=== PATIENT | male | born 1960 | race Caucasian/White ===

== ENCOUNTER 2017-03-23 21:58 | Emergency (ER) | payer BC, OTHER ==
--- NOTE | 2017-03-23 22:41 | ERNOTE ---
Medical Problem HPI - Narrative Date of Service: 03/23/17 - General Chief Complaint: General Assessment Time Seen by Provider: 03/23/17 22:37 Source: patient - Immun/Allergies/Home Medications Immunizations: IMMUNIZATION HX Immunizations Up to Date Yes History of Influenza Vaccine No Hx Pneumococcal Vaccination No Allergies/Adverse Reactions: Allergies No Known Allergies Allergy (Unverified 03/23/17 22:01) Home Medications: HOME MEDICATIONS Calcium Carbonate [Calcium] 750 mg PO DAILY 03/23/17 [Last Taken Unknown] Carisoprodol/Aspirin [Carisoprodl-Aspirin 200-325 mg] 1 each PO DAILY 03/23/17 [ Last Taken Unknown] Levothyroxine Sodium [Synthroid] 200 mcg PO SUMOTU 03/23/17 [Last Taken Unknown] Levothyroxine Sodium [Synthroid] 225 mcg PO WETHFRSA 03/23/17 [Last Taken Unknown] Meloxicam [Mobic] 7.5 mg PO DAILY 03/23/17 [Last Taken Unknown] [place]-3 Fatty Acids [Fish Oil] 300 mg PO DAILY 03/23/17 [Last Taken Unknown] - History of Present History Narrative: LEFT RIB PAIN AFTER COUGHING STARTING TODAY. NO OTHER TRAUMA KNOWN. 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 Review of Systems - Review of Systems Constitutional: Present: See HPI EYE: Present: no symptoms reported ENT: Present: no symptoms reported Respiratory: Present: See HPI, cough Cardiology: Present: no symptoms reported Gastrointestinal/Abdominal: Present: no symptoms reported Genitourinary: Present: no symptoms reported Musculoskeletal: Present: See HPI - LEFT RIB PAIN AFTER COUGHING Skin: Present: no symptoms reported Neurological: Present: no symptoms reported Endocrine: Present: no symptoms reported Hematologic/Lymphatic: Present: no symptoms reported Psych: Present: no symptoms reported All Other Systems: All systems neg except as marked - Patient's Past Medical History Patient History - Medical: GERD, Hypothyroidism, Kidney stone Patient History - Cardiac/Respiratory: Pneumonia, CPAP/BiPAP Home Use, Sleep Apnea Patient History - Cancer: No Hx of Cancer Patient History - Surgical Procedures: Appendectomy, Total Knee Replacement, T & A, Other Patient History - Other: None - Social History Living Situations: home Abuse History: No History of abuse Psych History: No pertinent hx Smoking Status: Never smoker Alcohol Use: none Drug Use: none - Immunizations Immunizations Up to Date: Yes Hx Pneumococcal Vaccination: No History of Influenza Vaccine: No Physical Exam - Physical Exam General Appearance: Present: wd/wn, alert, moderate distress - VERY OBESE MAN , BMI = 43+, 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 Respiratory: Present: no respiratory distress, normal breath sounds, no accessory muscle use, lungs clear, chest tenderness - C/O TENDERNESS TO LEFT MID ANT -LATERAL CHEST WALL IN AREA OF ANT AXILLARY LINE. THERE IS NO CREPITUS OR SWELLING OR BRUISSE OR DISCOLORATION . HE C/O SOME PAIN TO SAME AREA WITH A- P COMPRESSION OF THE CHEST FROM STERNUM TO BACK. Back Exam: Present: normal inspection Neurological Exam: Present: alert, oriented Skin Exam: Present: normal color, warm/dry. Absent: skin rash ED Progress - Vital Signs Patient's Vital Signs:: I have reviewed the patient's vital signs. Vital Signs: Vital Signs 03/23/17 22:00 Temperature 36.3 C L Pulse Rate 81 Respiratory 20 Rate Blood Pressure 161/97 O2 Sat by Pulse 95 Oximetry - X-Ray X-Ray #1 X-Ray: ribs - LEFT RIBS WITH NO SIGN OF FRACTURE. Interpretation: Interp. 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 Departure - Departure Clinical Impression: Rib pain on left side Disposition: Home Follow Up Needed Condition: Good Instructions: Chest Wall Pain, Rib Contusion, Musculoskeletal Pain Additional Instructions: LOCAL CARE WITH ICE X 20 MINS FOLLOWED BY HEAT FOR 20 MIN Q 4 HOURS. GENTLE ACTIVITY. IBUPROFEN 600 MG EVERY 8 HRS, TAKE WITH FOOD. SAVE YOUR OXYCODONE FOR EXTRA PAIN RELIEF IF NEEDED. RECHECK WITH YOUR FAMILY DOCTOR IF WORSE. BIO- FREEZE TOPPICALLY MAY HELP WELL. Referrals: Darrius Lea MD [Primary Care Provider] -
--- OUTSIDE RECORDS SUMMARY | 2017-03-23 22:59 | XMS REPORT | Continuity of Care Document ---
:1960 Author Organization [facility] ([facility]) Address [address] [place] [address] Phone [phone] Care Team Providers Name Role Phone Darrius Purcell Primary Care Provider [phone] Source Comments This disclosure is being made pursuant to the Care Everywhere program, applicable federal and state laws, and may not contain all informaitonavailable regarding this patient.[facility] ([facility]) Active Allergies and Adverse Reactions Allergen Noted Date Severity Reactions Comments Bee Stings Angioedema Current Medications Prescription Sig. Disp. Refills Start Date End Date Status levothyroxine 200 mcg Take 200 mcg by mouth Active tablet every morning before breakfast. ibuprofen 800 mg Take 800 mg by mouth Active tablet daily. carisoprodol 350 mg Take 700 mg by mouth Active tablet at bedtime. SAW PALMETTO PO Take 900 mg PE by Active mouth daily. [id number] Take 2 Tabs by mouth Active rae serr (OSTEO daily. BI-FLEX) 1,500-400-100 mg-unit-mg Tab Grape Seed Extract Take 1 Cap by mouth Active 100 mg cap daily. docusate (STOOL Take 200 mg by mouth Active SOFTENER) 100 mg at bedtime. capsule diphenhydrAMINE-aceta Take 1.5 Tabs by mouth Active minophen 25-500 mg at bedtime as needed. per tablet OTHER 1 mL daily. Active Testosterone cream levothyroxine 25 mcg l-t4 25 mcg for 3 45 Tab 3 02/02/2013 Active tablet days/week (Thu-Thu). Indications: HYPOTHYROIDISM VENTOLIN HFA 90 as needed. 0 04/09/2016 Active mcg/Actuation inhaler ADVAIR 500-50 inhaler 1 Puff every 12 hours. 11 04/07/2016 Active furosemide 20 mg Take 60 mg by mouth 0 04/09/2016 Active tablet daily. omeprazole 40 mg 11 04/04/2016 Active enteric coated capsule multivitamin tablet Take 1 tablet by mouth Active daily. omega-3 fatty acids 1 Take 2 g by mouth 2 Active gram capsule times daily. Active Problems Problem Noted Date Localized edema 04/15/2016 PAF (paroxysmal atrial fibrillation) Overview: Formatting of this note may be different from the original. CARDIOVASCULAR PROCEDURES STRESS TESTS: SEH (7mins and 30secs. HR 155. Neg stress echo.) - 06/25/2006 MPI (Normal. EF 62%.) - 01/24/2008 ECHO Echo: LVEF 60%. Normal wall motion. No valvular heart disease. RVSP 35mmg. Morbid obesity with BMI of 45.0-49.9, adult Immunizations Name Dates Previously Given Next Due Influenza, unspecified 09/18/2012 Social History Tobacco Use Types Packs/Day Years Used Date Never Smoker Last Filed Vital Signs Vital Sign Reading Time Taken Blood Pressure 120/78 04/15/2016 11:32 AM CDT Pulse 66 04/15/2016 11:32 AM CDT Temperature 36.7 C (98.1 F) 02/23/2013 4:21 PM CDT Respiratory Rate 16 02/23/2013 4:21 PM CDT Height 1.803 m (5' 11") 04/15/2016 11:32 AM CDT Weight 155 kg (341 lb 11.4 oz) 04/15/2016 11:32 AM CDT Body Mass Index 47.68 04/15/2016 11:32 AM CDT Oxygen Saturation - - Plan of Care Health Maintenance Due Date Last Done Comments HCV Screening 1960 Hepatitis B Vaccine (1 of 3 - Primary Series) 1960 Tdap Vaccine 1970 Lipid Disorder Screening 1977 MMR Vaccine 1977 Td Vaccine 1977 Colonoscopy 03/23/2009 Prostate Cancer Screening 01/31/2014 01/31/2013 Influenza Vaccine: Seasonal (#1) 05/19/2016 09/18/2012 Results from Last 3 Months Not on file
[2017-03-24 00:11] VITALS: BP 152/87
== END 2017-03-24 00:09 | disposition home or self-care (01) ==
LOC: ER 21:58
DX: R07.81 Pleurodynia (principal); Z87.442 Personal history of urinary calculi; E03.9 Hypothyroidism, unspecified; K21.9 Gastro-esophageal reflux disease without esophagitis

== ENCOUNTER 2020-09-03 22:52 | Inpatient (IN) ==
[2020-09-03] MEDS ORDERED: NORMAL SALINE 1,000 ML IV ONE (23:26)
--- NOTE | 2020-09-03 23:27 | ERNOTE ---
Dyspnea - General Presenting Symptoms: shortness of breath Time Seen by Provider: 09/03/20 23:20 Source: patient Exam Limitations: no limitations - Immun/Allergies/Home Medications Immunizations: IMMUNIZATION HX Immunizations Up to Date Yes History of Influenza Vaccine No Hx Pneumococcal Vaccination No Allergies/Adverse Reactions: Allergies cefuroxime [From Ceftin] Allergy (Mild, Verified 09/03/20 23:12) lost sense of smell and taste levofloxacin Allergy (Mild, Verified 09/03/20 23:12) loss of taste Home Medications: HOME MEDICATIONS Calcium Carbonate [Calcium] 750 mg PO DAILY 03/23/17 [Last Taken Unknown] [place]-3 Fatty Acids [Fish Oil] 300 mg PO DAILY 03/23/17 [Last Taken Unknown] docusate sodium 100 mg capsule 100 mg PO DAILY 09/27/18 [Last Taken Unknown] grape seed extract 50 mg capsule 100 mg PO DAILY cap 09/27/18 [Last Taken Unknown] multivitamin 1 tab PO DAILY 09/27/18 [Last Taken Unknown] oxymetazoline 0.05 % nasal spray 2 spray PELON Q12H PRN 09/27/18 [Last Taken Unknown] zolpidem 10 mg tablet 10 mg PO HS PRN 09/27/18 [Last Taken Unknown] Cyclobenzaprine HCl [Flexeril] 10 mg PO TID PRN #30 tab 12/26/18 [Last Taken Unknown] Nebulizer tubing 0 .ROUTE .MEDSUPPLY #2 ea 03/09/19 [Last Taken Unknown] omeprazole 10 mg capsule,delayed release 10 mg PO DAILY 03/09/19 [Last Taken Unknown] potassium chloride 20 mEq tablet,extended release(part/cryst) 20 meq PO .twice a week tab 03/09/19 [Last Taken Unknown] epinephrine 0.3 mg/0.3 mL injection, auto-injector 0.3 mg IM Q10-15M PRN #1 ea 10/06/19 [Last Taken Unknown] nebulizers See Dose Instructions .ROUTE .MEDSUPPLY #1 ea 10/18/19 [Last Taken Unknown] albuterol sulfate 2.5 mg IH Q4H PRN #180 ml 12/26/19 [Last Taken Unknown] carisoprodol 350 mg tablet 700 mg PO HS #60 tab 03/26/20 [Last Taken Unknown] levothyroxine 200 mcg tablet 200 mcg PO DAILY #30 tab 03/26/20 [Last Taken Unknown] levothyroxine 25 mcg capsule 25 mcg PO DAILY #90 cap 03/28/20 [Last Taken Unknown] montelukast 10 mg tablet 10 mg PO DAILY #30 tab 05/08/20 [Last Taken Unknown] furosemide 20 mg tablet 30 mg PO .twice a week #8 tab 05/11/20 [Last Taken Unknown] budesonide 0.5 mg/2 mL suspension for nebulization 2 ml IH BID #120 ml 06/04/20 [Last Taken Unknown] Durable Medical Equipment See Rx Instructions .ROUTE .MEDSUPPLY #1 ea 06/11/20 [Last Taken Unknown] albuterol sulfate 90 mcg/actuation aerosol inhaler See Rx Instructions IH .Q4- 6HR PRN #8 g 06/11/20 [Last Taken Unknown] bipap 0 .ROUTE .MEDSUPPLY #1 ea 06/11/20 [Last Taken Unknown] naproxen 500 mg tablet 500 mg PO BID #60 tab 07/06/20 [Last Taken Unknown] oxycodone-acetaminophen 10 mg-325 mg tablet See Rx Instructions PO DAILY #50 tab 08/16/20 [Last Taken Unknown] polymyxin B sulfate 10,000 unit-trimethoprim 1 mg/mL eye drops 1 drp OP QID 10 Days #10 ml 08/31/20 [Last Taken Unknown] prednisone 10 mg tablet 30 mg PO BID #60 tab 08/31/20 [Last Taken Unknown] benzonatate 100 mg capsule 200 mg PO TID PRN #100 cap 09/03/20 [Last Taken Unknown] - History of Present Illness Narrative: Patient states that he got pinkeye last week which prompted him to get a Covid test on Thursday he got results back on Thursday that were positive. He has been somewhat short of breath which has increased yesterday and today. He had saturations in the upper 80s earlier today and presented to the ED. He had what he calls spikes of chest pain now and then the chest pain only lasted a few seconds at a time. Severity: moderate Treatment [employer]: albuterol Initiating event: Reports: other - Covid Frequency of episodes: Reports: occassional episodes - Asthma Associated Symptoms-Dyspnea: Reports: fever/chills, sweating, chest pain/discomfort Review of Systems - Review of Systems Constitutional: Present: See HPI, recent illness, fever EYE: Present: see HPI, eye discharge ENT: Present: nose congestion, nasal drainage Respiratory: Present: See HPI, shortness of breath, cough - Some mild occasionally blood-tinged sputum Cardiology: Present: See HPI, chest pain. Absent: edema Gastrointestinal/Abdominal: Present: eating less, drinking less. Absent: nausea, vomiting, abdominal pain Genitourinary: Absent: frequency, dysuria Musculoskeletal: Absent: back pain, muscle pain Skin: Absent: rash Neurological: Present: headache. 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) Bilateral shoulder pain (Chronic) Bee sting reaction (Chronic) Atrial fibrillation (Chronic) Asthma (Chronic) Allergic rhinitis (Chronic) Asthma exacerbation attacks (Chronic) Deviated nasal septum YU (obstructive sleep apnea) PVC (premature ventricular contraction) Surgical History: Surgical History (Last Reviewed 09/03/20 @ 23:23 by Mu Chen DO) H/O colonoscopy 2009 tinguely normal screen H/O thyroidectomy History of appendectomy Hx of tonsillectomy Family History: Family History (Last Reviewed 09/03/20 @ 23:23 by Mu Chen DO) Father Cancer colon and skin Parkinsons Kidney disease Mother Cancer pancreas Pacemaker Sister Thyroid disease Social History: (Last Reviewed 09/03/20 @ 23:23 by Mu Chen DO) Social History: Highest level of school completed/degree received: Professional school degre Service: No Tobacco: Smoking Status: Never smoker Alcohol: alcohol intake: former Substance Use: substance use type: does not use Dietary Habits: well-balanced diet: about half the time Exercise: Physical activity type: none Physical Exam - Physical Exam General Appearance: Present: wd/wn, alert, no apparent distress Head Exam: Present: normal inspection, no evidence of injury Eye Exam: Normal inspection: bilateral Ears, Nose, Throat: Present: normal ENT inspection Neck: Present: normal inspection, nontender Respiratory: Present: no respiratory distress, chest nontender, wheezing - Bilateral Cardiovascular/Chest: Present: regular rate, rhythm, no murmur Gastrointestinal/Abdominal: Present: normal bowel sounds, nontender, nondistended, soft Extremity Exam: Present: normal inspection, normal range of motion, no edema Neurological Exam: Present: alert, oriented, normal mood/affect, no motor/sensory deficits Skin Exam: Present: normal color, warm/dry Lymphatic Exam: Present: no adenopathy Progress - Results and Orders Patient's Lab Results:: I have reviewed the patient's lab results. - Vital Signs Patient's Vital Signs:: I have reviewed the patient's vital signs. Vital Signs: Vital Signs 09/03/20 23:12 Temperature 38.2 C H Pulse Rate 88 Respiratory Rate 24 H Blood Pressure 175/75 H O2 Sat by Pulse Oximetry 83 L - EKG EKG #1 EKG: NSR, no ST T wave changes EKG read: Interp. by me - X-Ray X-Ray #1 X-Ray: chest Interpretation: Interp. by me X-ray Comments: Patchy infiltrates throughout the right lung and in the left lower lung. Cardiomegaly unchanged from previous. No pneumothorax. - Progress/Reassessment Progress Note-Subjective: 09/04/20 01:12 Patient continues to require 3 L of oxygen per nasal cannula in order to keep a oxygen saturation of 92% I spoke to Dr. Verduzco he agrees to admit patient for Covid pneumonia. I had di scussed with him about the elevated D-dimer and he states with Covid positive patients they were not doing a CTA to rule out PE but covering them with Lovenox while in the hospital. Departure Clinical Impression: Pneumonia due to COVID-19 virus - Departure Disposition: Still a patient Condition: Good
[2020-09-03 23:30] LABS: Hematocrit 40.9 % (42.0-52.0); Hemoglobin 13.4 gm/dL (13.5-18.0); Mean Cell Volume 95.8 fl (78-100); Mean Corpuscular Hemoglobin 31.4 pg (27-31); Mean Corpuscular Hgb Conc 32.8 g/dl (32-36); Mean Platelet Volume 10.3 fl (8-11.3); Neutrophil # 10.8 K/mm3 (1.3-6.0); Neutrophil % 91.3 % (42-75.0); Platelet Count 243 K/mm3 (150-450); Red Blood Count 4.27 M/mm3 (4.7-6.0); Red Cell Distribution Width 13.5 % (11.5-14.0); White Blood Count 11.8 K/mm3 (4.0-10.5)
[2020-09-03] MEDS ORDERED: ALBUTEROL SULFATE 2.5 MG/0.5 ML VIAL.NEB IH ONE (23:46)
[2020-09-03 23:55] LABS: Albumin * 2.9 gm/dl (3.4-5.0); Anion Gap 13.3 mmol/L (6.8-13.8); BUN/Creatinine Ratio 16.5 (9.0-21.6); Bilirubin, Total 0.7 mg/dL (0.0-1.1); Ca. Corrected For Albumin 9.2 mg/dL (8.4-10.2); Calcium * 8.6 mg/dL (7.9-10.9); Carbon Dioxide 25.3 mmol/L (24-32.6); Potassium 3.6 mmol/L (3.4-4.6); Total Protein 6.7 gm/dL (6.2-8.2)
[2020-09-04] MEDS ORDERED: ENOXAPARIN SODIUM 100 MG/ML SYRG SC SCH (01:15)
[2020-09-04] MEDS ORDERED: ENOXAPARIN SODIUM 60 MG/0.6 ML SYRG SC ONE (02:50)
[2020-09-04] MEDS ORDERED: DEXAMETHASONE SODIUM PHOSP/PF 10 MG/ML VIAL IV ONE (07:47)
[2020-09-04] MEDS ORDERED: HYDROcodone/ACETAMINOPHEN 1 EACH TABLET PO PRN (07:56)
[2020-09-04] MEDS ORDERED: REMDESIVIR IV SCH (08:00)
[2020-09-04] MEDS ORDERED: NORMAL SALINE IV SCH (08:00)
[2020-09-04] MEDS ORDERED: REMDESIVIR (EUA) 200 MG in NORMAL SALINE 210 ML IV ONE (08:11)
[2020-09-04] MEDS ORDERED: ENOXAPARIN SODIUM 40 MG/0.4 ML SYRG SC SCH (08:30)
[2020-09-04] MEDS ORDERED: FUROSEMIDE 20 MG TABLET PO ONE (08:37)
[2020-09-04] MEDS ORDERED: EPINEPHrine 1 MG/ML VIAL IM PRN (08:37)
[2020-09-04] MEDS ORDERED: DOCUSATE SODIUM 100 MG CAPSULE PO SCH (09:00)
[2020-09-04] MEDS ORDERED: FUROSEMIDE 20 MG TABLET PO SCH ×2 (09:00→09:15)
[2020-09-04] MEDS ORDERED: POTASSIUM CHLORIDE 20 MEQ TABLET.SA PO SCH ×3 (09:00→09:15)
[2020-09-04] MEDS ORDERED: MULTIVITAMINS 1 CAP CAPSULE PO SCH (09:00)
[2020-09-04] MEDS ORDERED: CALCIUM CARBONATE 500 MG TAB.CHEW PO SCH (09:00)
--- NOTE | 2020-09-04 09:02 | PN ---
Subjective - Date and Time Seen Date: 09/04/20 Time: 07:30 Subjective Narrative: Patient states that he got pinkeye last week which prompted him to get a Covid test on Thursday he got results back on Thursday that were positive. He has been somewhat short of breath which increased yesterday and today. He has chronic asthma. He had saturations in the upper 80s earlier today and presented to the ED. He had what he calls spikes of chest pain now and then the chest pain only lasted a few seconds at a time. He has had a relatively recent evaluation for CAD which turned out ok. He had a fever at home to 101. He has been coughing and wheezing. aches all over. fatigued. no headache, chills or sweats. cough is productive occasionally of white phlegm. CXR shows bilateral infiltrates. Lab work fairly unremarkable. ER doctor ordered oxygen and one dose of dexamethason e.O2 sat in the ER 83. With n.c. O2, low to mid nineties. Respiratory rate 20- 24. Uses bipap at home for YU. Objective - Review of Systems Generalized/Overall Review: Reports: Weakness, Fever, Malaise. Denies: Chills, Diaphoresis EENTM: Reports: Other - resolving pink eye. Denies: Eye Pain, Blurred Vision Respiratory: Reports: Cough, Shortness of Breath, Wheezing, Other - chest tightness/heaviness Cardiac: Reports: Chest Pain - sharp brief intermittent Abdominal: Reports: No Symptoms Reported Genitourinary Symptoms: Reports: No Symptoms Reported Musculoskeletal Complaints: Reports: Joint Pain, Other - hurts all over Neurological: Reports: No Symptoms Reported Skin: Reports: No Symptoms Reported Endocrine: Reports: No Symptoms Reported Misc: All systems neg except as marked - Vitals Vitals: Last Vital Signs Temp 37.4 C 09/04/20 07:12 Pulse 83 09/04/20 07:12 Resp 18 09/04/20 07:12 BP 155/78 H 09/04/20 07:12 Pulse Ox 95 09/04/20 07:12 - Abnormal Lab Findings Abnormal Lab Findings: Abnormal Lab Results 09/03/20 09/03/20 09/03/20 Range/Units 23:15 23:15 23:15 WBC 11.8 H (4.0-10.5) K/mm3 RBC 4.27 L (4.7-6.0) M/mm3 Hgb 13.4 L (13.5-18.0) gm/dL Hct 40.9 L (42.0-52.0) % MCH 31.4 H (27-31) pg Immature Gran % (Auto) 0.60 H (0.001-0.429) % Immature Gran # (Auto) 0.07 H (0.000-0.0310) K/mm3 Neutrophils % 91.3 H (42-75.0) % Lymphocytes % 3.6 L (20-51) % Neutrophils # 10.8 H (1.3-6.0) K/mm3 Lymphocytes # 0.42 L (1.5-3.5) k/mm3 D-Dimer 1.85 H (0.19-0.49) ug/mL B-Natriuretic Peptide 788 H (5-175) pg/mL Albumin 2.9 L (3.4-5.0) gm/dl - Exam Constitutional: Present: Alert, Oriented x3, Cooperative, Well developed, No distress, Other - looks like he doesn't feel well, Obese ENT Exam: Present: normal ENT inspection, hard of hearing Neck: Present: normal inspection. Absent: limited range of motion, lymphadenopathy (R), lymphadenopathy (L), thyromegaly Breasts: Present: Exam deferred Respiratory: Present: no respiratory distress, rhonchi, wheezing Cardiovascular/Chest: Present: regular rate, rhythm, no edema - history of leg and foot edema for which he takes lasix, no gallop, no JVD, no murmur Abdomen: Present: Normal bowel sounds, soft, nontender, nondistended, no hepatospenomegaly, no masses, obese /Rectal: Present: Exam deferred Skin Exam: Present: warm/dry, no cyanosis. Absent: jaundice, skin rash Lymphatic: Present: no adenopathy Neurologic: Present: oriented x 3. Absent: abnormal gait Appearance: Present: appropriate appearance, appropriate insight, neat Eye contact: Present: cooperative, good eye contact, normal speech Thoughts: Present: other - appear somewhat anxious Assessment/Plan - Problems/Diagnosis (1) Respiratory failure with hypoxia Problem: Acute Qualifiers: Chronicity: acute Qualified Code(s): J96.01 - Acute respiratory failure with hypoxia Narrative: plan n.c. O2. adjust treatment as necessary. monitor. (2) Pneumonia due to COVID-19 virus Problem: Acute Narrative: Antiviral. Dexamethasone. Rocephin, since this could also be Covid 19 with pneumonia, bacterial, as a complication. monitor. (3) Acute asthma Problem: Acute Narrative: desamethasone. albuterol. monitor. (4) BMI 45.0-49.9, adult Problem: Chronic (5) Chronic pain of both shoulders Problem: Chronic (6) Chronic venous insufficiency Problem: Chronic (7) Hypothyroidism Problem: Chronic Qualifiers: (8) Hypovitaminosis D Problem: Chronic (9) YU treated with BiPAP Problem: Chronic
[2020-09-04] MEDS: BUDESONIDE IH SCH ×2 (09:10→22:42)
[2020-09-04] MEDS: NEOMYCIN/GRAMICIDIN/POLYMYXN B 100 DROP BTL EACHEYE SCH ×4 (09:14→22:42)
--- NOTE | 2020-09-04 10:42 | HP ---
Chief Complaint - Chief Complaint Date of Service: 09/04/20 Time of Service: 07:30 Chief Complaint: Short of Breath History of Present Illness: Harjeet got pinkeye last week which prompted him to get a Covid test on Thursday he got results back on Thursday that were positive. He has been somewhat short of breath which increased yesterday and today. He has been wheezing. He has chronic asthma. That flared up 6 days ago and he started prednisone 30 mg twice daily. In the ER he had saturations in the upper 80s earlier today when her presented to the ED. He had spikes of chest pain now then which lasted a few seconds at a time. He has had a relatively recent evaluation for CAD which turned out ok. He had a fever at home to 101. He has been coughing and wheezing. aches all over. fatigued. no headache, chills or sweats. cough is productive occasionally of white phlegm. CXR shows bilateral infiltrates. Lab work fairly unremarkable. ER doctor ordered oxygen and one dose of dexamethasone.O2 sat in the ER 83. With n.c. O2, low to mid nineties. Respiratory rate 20-24. Uses bipap at home for YU. 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) Bilateral shoulder pain (Chronic) Bee sting reaction (Chronic) Atrial fibrillation (Chronic) Asthma (Chronic) Allergic rhinitis (Chronic) Asthma exacerbation attacks (Chronic) Deviated nasal septum YU (obstructive sleep apnea) PVC (premature ventricular contraction) Surgical History: Surgical History (Last Reviewed 09/04/20 @ 10:38 by Darrius Lea MD) H/O colonoscopy 2009 tinguely normal screen H/O thyroidectomy History of appendectomy Hx of tonsillectomy Family History: Family History (Last Reviewed 09/04/20 @ 10:38 by Darrius Lea MD) Father Cancer colon and skin Parkinsons Kidney disease Mother Cancer pancreas Pacemaker Sister Thyroid disease Social History: (Last Reviewed 09/04/20 @ 10:38 by Darrius Lea MD) Social History: 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 Absent: Edema Abdominal: Absent: Nausea, Abdominal Pain, Constipation, Diarrhea Genitourinary: Absent: Burning, Urgency Neurological: Present: No Symptoms Reported Skin: Absent: Lesions, Rash Endocrine: Present: No Symptoms Reported Immunizations: IMMUNIZATION HX Immunizations Up to Date Yes History of Influenza Vaccine No Hx Pneumococcal Vaccination No Allergies/Adverse Reactions: Allergies Allergy/AdvReac Type Severity Reaction Status Date / Time cefuroxime [From Ceftin] Allergy Mild lost sense Verified 09/03/20 23:12 of smell and taste levofloxacin Allergy Mild loss of Verified 09/03/20 23:12 taste Home Medications: HOME MEDICATIONS Calcium Carbonate [Calcium] 750 mg PO DAILY 03/23/17 [Last Taken Unknown] [place]-3 Fatty Acids [Fish Oil] 300 mg PO DAILY 03/23/17 [Last Taken Unknown] docusate sodium 100 mg capsule 100 mg PO DAILY 09/27/18 [Last Taken Unknown] grape seed extract 50 mg capsule 100 mg PO DAILY cap 09/27/18 [Last Taken Unknown] multivitamin 1 tab PO DAILY 09/27/18 [Last Taken Unknown] oxymetazoline 0.05 % nasal spray 2 spray PELON Q12H PRN 09/27/18 [Last Taken Unknown] zolpidem 10 mg tablet 10 mg PO HS PRN 09/27/18 [Last Taken Unknown] Cyclobenzaprine HCl [Flexeril] 10 mg PO TID PRN #30 tab 12/26/18 [Last Taken Unknown] Nebulizer tubing 0 .ROUTE .MEDSUPPLY #2 ea 03/09/19 [Last Taken Unknown] omeprazole 10 mg capsule,delayed release 10 mg PO DAILY 03/09/19 [Last Taken Unknown] potassium chloride 20 mEq tablet,extended release(part/cryst) 20 meq PO .twice a week tab 05/22/19 [Last Taken Unknown] epinephrine 0.3 mg/0.3 mL injection, auto-injector 0.3 mg IM Q10-15M PRN #1 ea 10/06/19 [Last Taken Unknown] nebulizers See Dose Instructions .ROUTE .MEDSUPPLY #1 ea 10/18/19 [Last Taken Unknown] albuterol sulfate 2.5 mg IH Q4H PRN #180 ml 12/26/19 [Last Taken Unknown] carisoprodol 350 mg tablet 700 mg PO HS #60 tab 03/26/20 [Last Taken Unknown] levothyroxine 200 mcg tablet 200 mcg PO DAILY #30 tab 03/26/20 [Last Taken Unknown] levothyroxine 25 mcg capsule 25 mcg PO DAILY #90 cap 03/28/20 [Last Taken Unknown] montelukast 10 mg tablet 10 mg PO DAILY #30 tab 05/08/20 [Last Taken Unknown] furosemide 20 mg tablet 30 mg PO .twice a week #8 tab 05/11/20 [Last Taken Unknown] budesonide 0.5 mg/2 mL suspension for nebulization 2 ml IH BID #120 ml 06/04/20 [Last Taken Unknown] Durable Medical Equipment See Rx Instructions .ROUTE .MEDSUPPLY #1 ea 06/11/20 [Last Taken Unknown] albuterol sulfate 90 mcg/actuation aerosol inhaler See Rx Instructions IH .Q4- 6HR PRN #8 g 06/11/20 [Last Taken Unknown] bipap 0 .ROUTE .MEDSUPPLY #1 ea 06/11/20 [Last Taken Unknown] naproxen 500 mg tablet 500 mg PO BID #60 tab 07/06/20 [Last Taken Unknown] oxycodone-acetaminophen 10 mg-325 mg tablet See Rx Instructions PO DAILY #50 tab 08/16/20 [Last Taken Unknown] polymyxin B sulfate 10,000 unit-trimethoprim 1 mg/mL eye drops 1 drp OP QID 10 Days #10 ml 08/31/20 [Last Taken Unknown] prednisone 10 mg tablet 30 mg PO BID #60 tab 08/31/20 [Last Taken Unknown] benzonatate 100 mg capsule 200 mg PO TID PRN #100 cap 09/03/20 [Last Taken Unknown] Exam - Exam Vital Signs: Vital Signs - Last Taken Temp 37.4 C 09/04/20 07:12 Pulse 83 09/04/20 07:12 Resp 18 09/04/20 07:12 BP 155/78 H 09/04/20 07:12 Pulse Ox 95 09/04/20 07:12 Constitutional: Present: Alert, Oriented x3, Cooperative, Well developed, Morbidly obese ENT Exam: Present: normal ENT inspection. Absent: hearing grossly normal Eye Exam: bilateral eye: normal inspection - redness he had is gone, PERRL, EOMI Neck: Present: normal inspection. Absent: lymphadenopathy (R), lymphadenopathy (L), thyromegaly Back Exam: Present: normal inspection Breasts: Present: Exam deferred Respiratory: Present: no respiratory distress, rhonchi, wheezing Cardiovascular/Chest: Present: regular rate, rhythm, no edema, no gallop, no JVD, no murmur Peripheral Pulses: carotid (R): 1+, carotid (L): 1+ Abdomen: Present: Normal bowel sounds, soft, nontender, nondistended, no hepatospenomegaly, no masses, obese /Rectal: Present: Exam deferred Extremity: Present: normal capillary refill - has intermittent edema. none today. Skin Exam: Present: normal color, warm/dry Lymphatic: Present: no adenopathy Neurologic: Present: motor weakness. Absent: abnormal gait Appearance: Present: appropriate appearance, appropriate insight, neat, no memory impairment Eye contact: Present: cooperative, good eye contact, normal speech Thoughts: Present: normal thought pattern - anxious about his illness Diagnostic Studies: Abnormal Lab Results 09/03/20 09/03/20 09/03/20 Range/Units 23:15 23:15 23:15 WBC 11.8 H (4.0-10.5) K/mm3 RBC 4.27 L (4.7-6.0) M/mm3 Hgb 13.4 L (13.5-18.0) gm/dL Hct 40.9 L (42.0-52.0) % MCH 31.4 H (27-31) pg Immature Gran % (Auto) 0.60 H (0.001-0.429) % Immature Gran # (Auto) 0.07 H (0.000-0.0310) K/mm3 Neutrophils % 91.3 H (42-75.0) % Lymphocytes % 3.6 L (20-51) % Neutrophils # 10.8 H (1.3-6.0) K/mm3 Lymphocytes # 0.42 L (1.5-3.5) k/mm3 D-Dimer 1.85 H (0.19-0.49) ug/mL B-Natriuretic Peptide 788 H (5-175) pg/mL Albumin 2.9 L (3.4-5.0) gm/dl Laboratory Results WBC 11.8 K/mm3 (4.0-10.5) H 09/03/20 23:15 RBC 4.27 M/mm3 (4.7-6.0) L 09/03/20 23:15 Hgb 13.4 gm/dL (13.5-18.0) L 09/03/20 23:15 Hct 40.9 % (42.0-52.0) L 09/03/20 23:15 MCV 95.8 fl (78-100) 09/03/20 23:15 MCH 31.4 pg (27-31) H 09/03/20 23:15 MCHC 32.8 g/dl (32-36) 09/03/20 23:15 RDW 13.5 % (11.5-14.0) 09/03/20 23:15 Plt Count 243 K/mm3 (150-450) 09/03/20 23:15 MPV 10.3 fl (8-11.3) 09/03/20 23:15 Immature Gran % (Auto) 0.60 % (0.001-0.429) H 09/03/20 23:15 Immature Gran # (Auto) 0.07 K/mm3 (0.000-0.0310) H 09/03/20 23:15 Neutrophils % 91.3 % (42-75.0) H 09/03/20 23:15 Lymphocytes % 3.6 % (20-51) L 09/03/20 23:15 Monocytes % 4.1 % (0.0-9) 09/03/20 23:15 Eosinophils % 0.1 % (0.0-3.0) 09/03/20 23:15 Basophils % 0.3 % (0.0-1.0) 09/03/20 23:15 Nucleated RBC % 0.0 k/mm3 (0-1) 09/03/20 23:15 Neutrophils # 10.8 K/mm3 (1.3-6.0) H 09/03/20 23:15 Lymphocytes # 0.42 k/mm3 (1.5-3.5) L 09/03/20 23:15 Monocytes # 0.5 k/mm3 (0.0-1.0) 09/03/20 23:15 Eosinophils # 0.0 k/mm3 (0.0-0.7) 09/03/20 23:15 Absolute Basophils 0.0 k/mm3 (0.0-0.1) 09/03/20 23:15 D-Dimer 1.85 ug/mL (0.19-0.49) H 09/03/20 23:15 Sodium 136 mmol/L (132-142) 09/03/20 23:15 Plasma Sodium 136 mmol/L (130-142) 09/03/20 23:15 Potassium 3.6 mmol/L (3.4-4.6) 09/03/20 23:15 Chloride 101 mmol/L (97-106) 09/03/20 23:15 Carbon Dioxide 25.3 mmol/L (24-32.6) 09/03/20 23:15 Anion Gap 13.3 mmol/L (6.8-13.8) 09/03/20 23:15 BUN 17 mg/dL (6-23) 09/03/20 23:15 Creatinine 1.03 mg/dL (0.4-1.4) 09/03/20 23:15 Est GFR (Non-Af Amer) 78 mL/min (60-130) 09/03/20 23:15 BUN/Creatinine Ratio 16.5 (9.0-21.6) 09/03/20 23:15 Random Glucose 109 mg/dL (70-110) 09/03/20 23:15 Calcium 8.6 mg/dL (7.9-10.9) 09/03/20 23:15 Calcium Adj for Albumin 9.2 mg/dL (8.4-10.2) 09/03/20 23:15 Total Bilirubin 0.7 mg/dL (0.0-1.1) 09/03/20 23:15 AST 30 U/L (0-48) 09/03/20 23:15 ALT 35 U/L (19-67) 09/03/20 23:15 Alkaline Phosphatase 75 U/L (50-170) 09/03/20 23:15 B-Natriuretic Peptide 788 pg/mL (5-175) H 09/03/20 23:15 Total Protein 6.7 gm/dL (6.2-8.2) 09/03/20 23:15 Albumin 2.9 gm/dl (3.4-5.0) L 09/03/20 23:15 Assessment/Plan - Assessment/Plan (1) Respiratory failure with hypoxia Assessment: - Problems/Diagnosis (1) Respiratory failure with hypoxia Problem: Acute Qualifiers: Chronicity: acute Qualified Code(s): J96.01 - Acute respiratory failure with hypoxia Narrative: plan n.c. O2. adjust treatment as necessary. monitor. (2) Pneumonia due to COVID-19 virus Problem: Acute Narrative: Antiviral. Dexamethasone. Rocephin, since this could also be Covid 19 with pneumonia, bacterial, as a complication. monitor. (3) Acute asthma Problem: Acute Narrative: desamethasone. albuterol. monitor. (4) BMI 45.0-49.9, adult Problem: Chronic (5) Chronic pain of both shoulders Problem: Chronic (6) Chronic venous insufficiency Problem: Chronic (7) Hypothyroidism Problem: Chronic Qualifiers: (8) Hypovitaminosis D Problem: Chronic (9) YU treated with BiPAP Problem: Chronic Problem: Acute Qualifiers: Chronicity: acute Qualified Code(s): J96.01 - Acute respiratory failure with hypoxia (2) Pneumonia due to COVID-19 virus Problem: Acute (3) Acute asthma Problem: Acute (4) BMI 45.0-49.9, adult Problem: Chronic (5) Chronic pain of both shoulders Problem: Chronic (6) Chronic venous insufficiency Problem: Chronic (7) Hypothyroidism Problem: Chronic Qualifiers: (8) Hypovitaminosis D Problem: Chronic (9) YU treated with BiPAP Problem: Chronic
[2020-09-04] MEDS: ALBUTEROL SULFATE 60 PUFF INHALER IH PRN ×3 (12:30→22:42)
[2020-09-04] MEDS ORDERED: PSEUDOEPHEDRINE HCL 30 MG TAB PO PRN (13:22)
[2020-09-04] MEDS: ALPRAZolam 0.5 MG TABLET PO SCH ×2 (14:24→22:42)
[2020-09-04] MEDS ORDERED: ENOXAPARIN SODIUM SC SCH ×2 (15:00)
[2020-09-04] MEDS ORDERED: ALBUTEROL SULFATE 60 PUFF INHALER IH SCH (15:00)
[2020-09-04] MEDS ORDERED: CHOLECALCIFEROL 5,000 UNIT TABLET PO SCH (18:00)
[2020-09-04] MEDS ORDERED: ALPRAZolam 0.5 MG TABLET PO ONE (19:44)
[2020-09-04] MEDS ORDERED: ZINC SULFATE 220 MG CAPSULE PO SCH (21:00)
[2020-09-04] MEDS ORDERED: MONTELUKAST SODIUM 10 MG TABLET PO SCH (21:00)
[2020-09-04] MEDS ORDERED: MIDAZOLAM HCL/PF 5 MG/ML VIAL ONE (23:36)
--- NOTE | 2020-09-05 00:23 | DS ---
Transfer Discharge Summary - Diagnosis(s)/Problems (1) Acute respiratory failure with hypoxia Problem: Acute (2) Pneumonia due to COVID-19 virus Problem: Acute (3) YU on CPAP Problem: Chronic - Course Description of Stay: Harjeet is a 60 yo male admitted for acute respiratory failure secondary to bilateral COVID-19 pneumonia. He was admitted on high flow oxygen at 6lpm, Remdesivir, rocephin, and dexamethasone. He was positive for COVID 19 and chest xray showed bilateral infiltrates. Through the day he has needed increased oxygen supply and was advanced to oxi-mask at 10lpm, and then to non-rebreather at 15lpm. At night when he was switched to CPAP as he does for sleep at home his oxygen dropped to the mid 80s and did not improve despite 100% FiO2. He was placed back on non-rebreather, but remained in the mid-80s. Anesthesia was called for sedation and intubation and he was bagged. His oxygen had difficulty getting above 80%. He was give 4mg IV morphine, 80mg IV lasix, powers catheter, and nebulized albuterol. He continued to be bagged with 100% FiO2. Chest xray was completed showing intubation in correct position was suspicion of ARDS. During this process [facility] was contacted for transfer and accepted transfer to Medical ICU. He was transported via Air. Even at the time of transport the highest we could get his oxygenation was mid 70s. Procedures Performed: see notes below Procedures: Sedation and Intubation 09/05/2020 - Medications Medications: Active Medications Hydrocodone Bitart/Acetaminophen (Hydrocodone/Acetaminophen 1 Each Tablet) 2 each PO Q4H PRN PRN Reason: cough/pain Stop: 10/04/20 07:57 Last Admin: 09/04/20 12:38 Dose: 2 each Documented by: Albuterol Sulfate (Albuterol Sulfate 60 Puff Inhaler) 1 puff IH Q4HRT PRN PRN Reason: wheeze/dyspnea Stop: 10/04/20 07:59 Last Admin: 09/04/20 22:42 Dose: 1 puff Documented by: Albuterol Sulfate (Albuterol Sulfate 60 Puff Inhaler) 2 puff IH Q8H [facility] Stop: 10/04/20 15:01 Last Admin: 09/04/20 14:27 Dose: 2 puff Documented by: Alprazolam (Alprazolam 0.5 Mg Tablet) 0.5 mg PO Q8H [facility] Stop: 10/04/20 14:01 Last Admin: 09/04/20 22:42 Dose: 0.5 mg Documented by: Budesonide (Budesonide 120 Puff Inhaler) 1 puff IH BID [facility] Stop: 10/04/20 09:01 Last Admin: 09/04/20 22:42 Dose: 1 puff Documented by: Calcium Carbonate/Glycine (Calcium Carbonate 500 Mg Tab.Chew) 750 mg PO DAILY [facility] Stop: 10/04/20 09:01 Last Admin: 09/04/20 10:42 Dose: 750 mg Documented by: Cholecalciferol (Cholecalciferol 5,000 Unit Tablet) 5,000 unit PO DAILY [facility] Stop: 10/04/20 18:01 Last Admin: 09/04/20 18:56 Dose: 5,000 unit Documented by: Docusate Sodium (Docusate Sodium 100 Mg Capsule) 100 mg PO DAILY [facility] Stop: 10/04/20 09:01 Last Admin: 09/04/20 10:21 Dose: 100 mg Documented by: Enoxaparin Sodium (Enoxaparin Sodium 40 Mg/0.4 Ml Syrg) 40 mg SC Q24H [facility] Stop: 10/04/20 08:31 Last Admin: 09/04/20 09:14 Dose: 40 mg Documented by: Furosemide (Furosemide 20 Mg Tablet) 30 mg PO TUSA [facility] Stop: 10/04/20 09:16 Last Admin: 09/04/20 10:42 Dose: 30 mg Documented by: Ceftriaxone Sodium 2,000 mg/ (Dextrose/Water) 100 mls @ 200 mls/hr IV Q24H [facility]; Protocol Stop: 10/04/20 08:31 Last Infusion: 09/04/20 11:43 Dose: Infused Documented by: Montelukast Sodium (Montelukast Sodium 10 Mg Tablet) 10 mg PO HS [facility] Stop: 10/04/20 21:01 Last Admin: 09/04/20 22:41 Dose: 10 mg Documented by: Multivitamins/Folic Acid (Multivitamins 1 Cap Capsule) 1 cap PO DAILY [facility] Stop: 10/04/20 09:01 Last Admin: 09/04/20 10:21 Dose: 1 cap Documented by: Neomycin/Polymyxin/Gramicidin (Neomycin/Gramicidin/Polymyxn B 100 Drop Btl) 2 drop EACHEYE QID [facility] Stop: 10/04/20 09:01 Last Admin: 09/04/20 22:42 Dose: 2 drop Documented by: Potassium Chloride (Potassium Chloride 20 Meq Tablet.Sa) 20 meq PO TUSA [facility] Stop: 10/04/20 09:16 Last Admin: 09/04/20 10:21 Dose: 20 meq Documented by: Pseudoephedrine HCl (Pseudoephedrine Hcl 30 Mg Tab) 30 mg PO Q4H PRN PRN Reason: nasal symptoms Stop: 10/04/20 13:23 Last Admin: 09/04/20 14:15 Dose: 30 mg Documented by: Zinc Sulfate (Zinc Sulfate 220 Mg Capsule) 220 mg PO BID [facility] Stop: 10/04/20 21:01 Last Admin: 09/04/20 22:41 Dose: 220 mg Documented by: Discontinued Medications Albuterol Sulfate (Albuterol Sulfate 2.5 Mg/0.5 Ml Vial.Neb) 2.5 mg IH ONCE ONE Stop: 09/03/20 23:47 Last Admin: 09/03/20 23:56 Dose: 2.5 mg Documented by: Alprazolam (Alprazolam 0.5 Mg Tablet) 0.5 mg PO ONCE ONE Stop: 09/04/20 19:45 Last Admin: 09/04/20 20:13 Dose: 0.5 mg Documented by: Enoxaparin Sodium (Enoxaparin Sodium 100 Mg/Ml Syrg) 150 mg SC Q12H [facility] Stop: 10/04/20 01:16 Last Admin: 09/04/20 02:53 Dose: 150 mg Documented by: Furosemide (Furosemide 20 Mg Tablet) 20 mg PO ONCE ONE Stop: 09/04/20 08:38 Last Admin: 09/04/20 10:54 Dose: Not Given Documented by: Furosemide (Furosemide 20 Mg Tablet) 20 mg PO BID@0900,1700 [facility] Stop: 10/04/20 09:01 Last Admin: 09/04/20 11:05 Dose: Not Given Documented by: Sodium Chloride (Sodium Chloride 0.9%) 1,000 mls @ 999 mls/hr IV .Q1H1M ONE Stop: 09/04/20 00:26 Last Infusion: 09/04/20 00:24 Dose: Infused Documented by: Remdesivir 200 mg/ Sodium (Chloride) 210 mls @ 250 mls/hr IV ONCE ONE; Protocol Stop: 09/04/20 09:01 Last Infusion: 09/04/20 10:45 Dose: Infused Documented by: Potassium Chloride (Potassium Chloride 20 Meq Tablet.Sa) 20 meq PO BID [facility] Stop: 10/04/20 09:01 Last Admin: 09/04/20 11:05 Dose: Not Given Documented by: - Disposition Disposition: Short Term Hospital Inpatient Condition: Critical Discharge Date: 09/05/20 Discharge Time: 01:45
[2020-09-05] MEDS ORDERED: MIDAZOLAM HCL/PF 5 MG/ML VIAL ONE (00:24)
[2020-09-05] MEDS ORDERED: FUROSEMIDE 10 MG/ML VIAL ONE (00:31)
[2020-09-05] MEDS ORDERED: MORPHINE SULFATE 4 MG/ML SYRG ONE (00:33)
[2020-09-05] MEDS ORDERED: MORPHINE SULFATE 4 MG/ML SYRG IV ONE (00:36)
[2020-09-05] MEDS ORDERED: FUROSEMIDE 10 MG/ML VIAL IV ONE (00:36)
--- NOTE | 2020-09-05 01:05 | ANES ---
Anesthesia Procedure Note Procedure Note: Procedure: Endotracheal intubation Diagnosis: Respiratory failure, Covid positive. Assessment: Mr. Durant is a 60-year-old morbidly obese male patient admitted today with a positive diagnosis of COVID-19. His respiratory status became increasingly compromised throughout the day, requiring progressively more intensive therapy. He does have sleep apnea and when was being converted to CPAP it was quite evident that his pulmonary status required additional support. I was called at midnight for intubation of this otherwise alert and oriented gentleman in obvious respiratory distress. His saturations were at 88% prior to intubation and his blood pressure and heart rate were significantly elevated. Procedure: After the procedure was explained and all medicine and equipment assembled the patient was given 5 mg of Versed IV and of the head of the bed was lowered to a supine position. A rapid sequence induction ensued with the following medication; Amidate 16 mg, rocuronium 5 mg, succinylcholine 120 mg. He was then intubated with a #8 endotracheal tube using a size 4 glide scope. There was no difficulty on the intubation however frothy red sputum was noted in the oropharynx and was brought back relatively quickly from the endotracheal tube shortly after intubation. The endotracheal tube was secured using a commercial device at 23 cm to the teeth. The breath sounds were present, distant and coarse, with the right lower lobe diminished compared to the other chest bey. Some movement was present in the upper extremities sooner than expected and at this point an additional 45 mg of rocuronium followed by 10 mg of vecuronium and 5 mg of Versed [10 mg total] was given. He was suctioned a couple times with a small amount of frothy red sputum removed. His blood pressure and heart rate were up and saturations were slow to rise from the upper 50s to the upper 70s. He was given 4 mg of morphine IV after which the blood pressure came down to a more reasonable level, 170/90 and heart rate just over 100 while the saturation was now in the low 80s. Transport team for the [facility] was present and ready for transfer prior to my departure.
[2020-09-05] MEDS ORDERED: ALBUTEROL SULFATE 2.5 MG/0.5 ML VIAL.NEB IH ONE ×2 (01:09→01:19)
[2020-09-05 06:32] VITALS: BP 218/99
[2020-09-05] MEDS ORDERED: LEVOTHYROXINE SODIUM 25 MCG TABLET PO SCH (07:00)
[2020-09-05] MEDS ORDERED: LEVOTHYROXINE SODIUM 100 MCG TABLET PO SCH (07:00)
[2020-09-05] MEDS ORDERED: PANTOPRAZOLE SODIUM 40 MG TABLET.EC PO SCH (07:00)
[2020-09-05] MEDS ORDERED: NORMAL SALINE IV SCH (09:00)
[2020-09-05] MEDS ORDERED: REMDESIVIR IV SCH (09:00)
== END 2020-09-05 01:48 | disposition short-term general hospital (02) | DRG 177 ==
LOC: ER 22:52 → MS 09-04 01:05
PROVIDERS: ADMIT Family Medicine; ATTEND Allergy & Immunology